=== PATIENT | female | born 1995 | race American Indian/Alaskan Native ===

== ENCOUNTER 2016-03-13 09:53 | Emergency (ER) | payer SELFPAY ==
[2016-03-13 10:19] VITALS: BP 129/87
--- NOTE | 2016-03-13 12:13 | Emergency Department Report ---
HPI - General Chief Complaint: Allergic Reaction Time Seen by Provider: 03/13/16 12:06 - HPI HPI: 20 y/o female complain of allergic reaction to having eye brow thread and had allergic reaction x 1 day .pt state that notice edema and redness above the eye brows .pt state she has been using hydrocortisone cream without any relief .denies any shortness of breath . ED Past Medical Hx - Past Medical History Previous Medical History?: No - Surgical History Past Surgical History?: No - Social History Smoking Status: Current Every Day Smoker Substance Use Type: Alcohol, Marijuana - Medications Home Medications: Home Medications Medication Instructions Recorded Confirmed Last Taken Type Cimetidine (Nf) [Tagamet (Nf)] 400 mg PO BID #6 tablet 03/13/16 Unknown Rx diphenhydrAMINE [Benadryl CAP] 50 mg PO Q8HR PRN #15 capsule 03/13/16 Unknown Rx predniSONE [Deltasone] 60 mg PO QDAY #3 tab 03/13/16 Unknown Rx ED Review of Systems ROS: Stated complaint: SKIN IRRITATION Other details as noted in HPI Constitutional: denies: chills, fever Eyes: denies: eye pain, eye discharge, vision change ENT: denies: ear pain, throat pain Respiratory: denies: cough, shortness of breath, wheezing Cardiovascular: denies: chest pain, palpitations Endocrine: no symptoms reported Gastrointestinal: denies: abdominal pain, nausea, diarrhea Genitourinary: denies: urgency, dysuria, discharge Musculoskeletal: denies: back pain, joint swelling, arthralgia Skin: rash, change in color. denies: lesions Neurological: denies: headache, weakness, paresthesias Psychiatric: denies: anxiety, depression Hematological/Lymphatic: denies: easy bleeding, easy bruising Physical Exam - Physical Exam Vital Signs: Vital Signs 03/13/16 10:14 Temperature 98.9 F Pulse Rate 58 L Respiratory 18 Rate Blood Pressure 129/87 O2 Sat by Pulse 99 Oximetry Physical Exam: GENERAL: The patient is well-developed and well-nourished. Patient is in NAD. HENT: Normocephalic. Atraumatic. Patient has moist mucous membranes. Throat: No erythema, swelling or exudates. EYES: Extraocular motions are intact, PERRL NECK: Supple. No meningitic signs are noted. There is no adenopathy noted. CHEST/LUNGS: Clear to auscultation bilaterally. No wheezing, rales or rhonchi noted. There is no respiratory distress noted. HEART/CARDIOVASCULAR: Regular rate and rhythm. Normal S1 S2. No murmurs, rubs , clicks, or gallops. ABDOMEN: Abdomen is soft, nontender.. Bowel sounds normoactive. There is no abdominal distention. Negative rebound tenderness. Negative Rovsing. Negative [place] testing. Negative obturator and psoas signs. Negative CVA tenderness B/ L. : Deferred. SKIN: mild edema noted above eyebrow with redness and crust noted . NEURO: The patient is A&Ox3. The patient has no focal neurologic deficits. MUSCULOSKELETAL: There is no tenderness or deformity. There is no limitation range of motion. PSYCH: Pt has appropriate mood and affect. ED Course Vital Signs 03/13/16 10:14 Temperature 98.9 F Pulse Rate 58 L Respiratory 18 Rate Blood Pressure 129/87 O2 Sat by Pulse 99 Oximetry ED Medical Decision Making - Medical Decision Making allergic reaction to needle threading of eye brow pt refuse shot and state she rather have prescription for medication Critical care attestation.: If time is entered above; I have spent that time in minutes in the direct care of this critically ill patient, excluding procedure time. ED Disposition Clinical Impression: Allergic reaction Qualifiers: Encounter type: initial encounter Qualified Code(s): T78.40XA - Allergy, unspecified, initial encounter Disposition: DISCHARGED TO HOME OR SELFCARE Is pt being admited?: No Does the pt Need Aspirin: No Condition: Stable Instructions: Urticaria (ED) Prescriptions: diphenhydrAMINE [Benadryl CAP] 50 mg PO Q8HR PRN #15 capsule PRN Reason: Allergic Reaction predniSONE [Deltasone] 60 mg PO QDAY #3 tab Cimetidine (Nf) [Tagamet (Nf)] 400 mg PO BID #6 tablet Forms: Work/School Release Form(ED) Time of Disposition: 12:18
== END 2016-03-13 12:28 | disposition home or self-care (01) ==
LOC: ED 09:53
DX: T78.40XA Allergy, unspecified, initial encounter (principal); F12.10 Cannabis abuse, uncomplicated; F17.200 Nicotine dependence, unspecified, uncomplicated; X58.XXXA Exposure to other specified factors, initial encounter
CPT/HCPCS: 99282